=== PATIENT | male | born 1980 | race Caucasian/White ===

== ENCOUNTER 2024-08-24 15:38 | Emergency (ER) | payer SELFPAY ==
--- NOTE | 2024-08-24 15:41 | ED.GENADUL_ITS ---
Discharge Plan Disposition Patient Disposition: Home Discharge Details Clinical Impression: Cellulitis of left hand Primary Care Provider: None,None ED Provider: Ralf Tabor Home Meds and New Rx's Prescriptions: New cephalexin 500 mg capsule 500 mg PO QID 5 Days Qty: 20 0RF Discharge Instructions Instructions: Cellulitis (Skin Infection), Adult ED Additional Instructions: You were seen in the emergency department for your hand pain. Your x-ray showed no sign of any fractures. As we discussed if you develop worsening swelling pain or have fevers or streaking signs of infection please return to the emergency department. Please take these antibiotics as directed. For your pain please take medications as follows: 1. Take acetaminophen (Tylenol), 1,000 mg (two 500 mg tabs) every 6 hours [2. Take ibuprofen (Advil), 400 mg every 6 hours.] Discharge Data Discharge Date/Time-TO BE ENTERED AT DEPARTURE: 08/24/24 17:07 HPI General Date/Time Provider Initiated Documentation: 08/24/24 15:41 . HPI Narrative: MDM This is a quite well-appearing afebrile and not tachycardic 44-year-old male with left hand following a relatively superficial laceration for which patient will receive cephalexin and empiric trial of discharge with expectant outpatient management. No pain out of proportion to suggest necrotizing soft tissue infection. No fusiform swelling nor pain along the flexor tendon sheath to suggest increased risk for flexor tenosynovitis. I obtained an x-ray and this was negative for any acute osseous abnormalities. There is no fluctuance to suggest abscess on bedside ultrasound was not consistent with abscess. On bedside ultrasound there was no obvious foreign body in the patient's healing laceration. No radiopaque foreign body on x-ray. Good range of motion in wrist so I am not suspicious for septic joint. 08/26/2024 Late charting due to patient care. In reviewing this patient's encounter today I inadvertently neglected to update his tetanus status. His wound appeared to have been fairly superficial however nonetheless patient will benefit from a tetanus update. I called the patient at the cell phone listed. He did not answer. I sent him a text message requesting that he return to the emergency department for a tetanus immunization. If I do not hear back from him I will send him a certified letter in the mail. HPI This is a patient with a history of nicotine use presenting with a left-hand injury. The patient arrived on foot. The patient, who is right-handed, sustained an injury to his left hand 2 days ago while working with a power take-off (PTO) shaft on a tractor. He continued to work for 12 hours post-injury without cleaning the wound. The injury occurred when he caught his knuckles on the collar of the PTO shaft. Initially, the hand was not significantly swollen, but this morning, after engaging in gardening activities, the swelling increased. The patient suspects the presence of foreign material in the wound due to the greasy and dirty state of his hands at the time of injury. He reports no fever or vomiting but mentions experiencing nausea due to high humidity levels during work. He has been using his hand normally since the incident. The patient attempted to express the wound today as it had started to turn white, but no discharge was noted. His daughter advised him to seek medical attention for the past 2 days. Exam General: Well-appearing in no acute distress speaking in complete sentences. Head: Normocephalic, atraumatic. Eye: Extraocular eye movements intact. No conjunctival injection. No scleral icterus. Ear, nose, mouth, throat: Grossly normal inspection. Normal voice, handling secretions normally. Neck: Trachea midline. Cardiovascular: Well-perfused distal extremities. Respiratory: Nonlabored respiration. Gastrointestinal: Nondistended abdomen. Musculoskeletal: On the dorsal aspect of the left hand just superficial to the MCP joint the long finger there is a small less than 1 mm laceration that is healing fine secondary intention. Patient has full range of motion in the left hand across the radial, median, and ulnar nerve distributions. Intact sensation in the left hand. 2+ left radial pulse. Cap refill less than 2 seconds left fingertips. No fusiform swelling. No pain with passive flexion nor pain with percussion along flexor tendon sheath. Skin: Normal for age and race, grossly normal temperature and turgor. No acute rash. Neurologic: Alert and appropriate, no apparent acute deficits. Psychiatric: Mood and manner are appropriate. Grooming and personal hygiene are appropriate. Related Data Home Medications ?Medication ?Instructions ?Recorded ?Confirmed cephalexin 500 mg capsule 500 mg PO QID 5 days #20 cap s 08/24/24 Previous Rx's ?Medication ?Instructions ?Recorded cephalexin 500 mg capsule 500 mg PO QID 5 days #20 cap s 08/24/24 Allergies Allergy/AdvReac Type Severity Reaction Status Date / Time No Known Allergies Allergy Unverified 08/24/24 15:49 Procedure Abscess Drainage Provider that performed the procedure: Ralf Tabor [facility] All Active Problems (Updated 08/24/24 @ 16:56 by Ralf Tabor MD) Cellulitis of left hand (Acute) Social History Smoking/Tobacco Use Status: Current every day Tobacco Type: e-cigarettes Smoking risk assessment performed?: Yes Alcohol Intake: current Alcohol Intake frequency: a few times a month Substance use type: does not use Housing: house Do you feel safe at home: Yes Do you feel safe in your relationship?: Yes POCUS Exam (ED) Limited Soft Tissue Exam DATE OF EXAM: 08/24/24 TIME OF EXAM: 16:15 PROVIDER THAT PERFORMED THE STUDY: Rlaf Tabor LOCATION OF EXAM: Upper extremity/left REASON FOR EXAM: Pain Exam Complete DIFFERENTIAL DIAGNOSES: No obvious abscess. Cobblestoning.
[2024-08-24 15:43] VITALS: BP 127/83; PULSE 85; RESP 18; TEMP 36.3; O2SAT 98
--- NOTE | 2024-08-24 15:45 | DI.RAD_ITS ---
Exam(s) XR HAND LT COMPLETE EXAM: XR HAND LT COMPLETE CLINICAL HISTORY: Left hand pain. TECHNIQUE: 2D digital imaging was performed. Three views. COMPARISON: No exams were available for comparison FINDINGS: BONES: No acute fracture is present. No bony destructive lesion is seen. JOINTS: No dislocation present. SOFT TISSUE: Posterior soft tissue swelling. No foreign body or abnormal gas collection. IMPRESSION: Soft tissue swelling. DATA REPOSITORY: RADIATION DOSE DELIVERED:
[2024-08-24 17:05] VITALS: BP 127/83; PULSE 85; RESP 18; TEMP 36.3; O2SAT 98
[2024-08-24 17:06] VITALS: RESP 20
--- NOTE | 2024-08-26 08:37 | W.ED.FU ---
Date of service: 08/26/24 Time of Service: 12:32 Follow Up Plan: I called this patient as I had not ordered him a Tdap. He is not able to return to the ED today. He plans to return tomorrow afternoon. I ordered his Tdap booster. I updated Access, Dr. Fry and the charge for 08/27, Irma Reggie. Patient will need a nursing visit but does NOT need to be seen by an ED Provider.
== END 2024-08-24 17:07 | disposition home or self-care (01) ==
PROVIDERS: Emergency Provider Emergency Medicine
DX: L03.114 Cellulitis of left upper limb (principal)
CPT/HCPCS: 99283 ×2; 76882; 73130

== ENCOUNTER 2024-08-27 12:18 | Emergency (ER) | payer SELFPAY ==
[2024-08-27] MEDS: Diph,Pertuss(Acell),Tet Vac/Pf 0.5 ML SYR IM (12:55)
--- NOTE | 2024-08-27 12:55 | ED.PROG_ITS ---
Date of service: 08/27/24 Time of Service: 12:55 Medical Decision Making Patient was seen and assessed here on 08/24/2024 for hand injury. Unfortunately his tetanus was not able to be updated at that time. He has come back today for his updated tetanus as a nursing follow-up visit, and not a formal visit. He d enies any other complaints. Patient received his tetanus shot without any complication. I have extensively reviewed the treatment plan and discharge instructions with the patient and their family. I have addressed all patient concerns at this time. The patient and family was made aware of what symptoms to monitor for that would warrant a return to the emergency department. Discussed the plan with the patient and family, they demonstrate verbal understanding and agreement with our assessment and plan at this time. The documentation in this chart was dictated using [employer] dictation software. Please excuse any dictation errors. Discharge Plan Disposition Patient Disposition: Home Condition: Good Discharge Details Clinical Impression: Encounter for re-check of laceration wound Primary Care Provider: None,None ED Provider: William Fry Home Meds and New Rx's Prescriptions: No Action cephalexin 500 mg capsule 500 mg PO QID 5 Days Qty: 20 0RF
== END 2024-08-27 13:01 | disposition home or self-care (01) ==
PROVIDERS: Emergency Provider Student in an Organized Health Care Education/Training Program
DX: Z23 Encounter for immunization (principal)
CPT/HCPCS: 90471; 00123; 90715